=== PATIENT | female | born 1925 | race Caucasian/White ===

== ENCOUNTER → 2017-09-12 | Outpatient (CLI) | payer OTHER ==
[~2017-09-12] MED LIST: ACET500 PO; ALEN70 PO; ALLO100 PO; AMIT10 PO; AMIT50 PO; ASPI81CH PO; Amikacin S250 MG/11 IM; CALCAVITD PO; CEFU250T47 PO; CHOL10002 PO; CIPR500 PO; DIAZ5 PO; DOXA2 PO; ELIQUIS2.5 MG PO; ELMIRON PO; ESCI10 PO; ESTRTP PV; Elmiron100 MG PO; FAMO20 PO; FISH1000 PO; GLUC500 PO; HYDACE5 PO; HYDR1TAB94 PO; LEVOTHYROXINE100 MCG IM; LEVSOD100 PO; LEVSOD25; LEVSOD50 PO; LIDO5TP TOP; LOPE2C PO; LOVA20; METO25 PO; METO25ER PO; METO50 PO; MULVITMINF PO; Macrodantin100 MG PO; Macrodantin50 MG PO; Nitrofurantoin50 MG PO; OLME20 PO; OMEP20ER PO; ONDA4 PO; Omeprazole20 M1 PO; PHENA100 PO; PRED10; PRED5 PO; PROLIA60 MG/1 ML SC; Pyridium200 MG PO; RANI150 PO; SIMV10 PO; SPIR25; SPIR50 PO; Valium5 MG PO; Zocor PO; Zofran4 MG PO
== END | disposition home or self-care (01) ==
LOC: LAB SHORT 09:39 → PLD 09:39
DX: D48.5 Neoplasm of uncertain behavior of skin (principal)
CPT/HCPCS: 88305

== ENCOUNTER → 2017-09-29 | Outpatient (CLI) | payer OTHER ==
[~2017-09-29] MED LIST changes: -ASPI81CH PO; -CEFU250T47 PO; -ELIQUIS2.5 MG PO; -FAMO20 PO; -LEVSOD50 PO; -METO50 PO; -Macrodantin50 MG PO; -Nitrofurantoin50 MG PO; -OLME20 PO; -PRED5 PO; -PROLIA60 MG/1 ML SC
== END ==
LOC: LAB EV 10:49 → LAB SHORT 10:49
DX: N39.0 Urinary tract infection, site not specified (principal)
CPT/HCPCS: 87077; 87086; 87186

== ENCOUNTER → 2017-10-26 | Outpatient (CLI) | payer OTHER | END | disposition home or self-care (01) | LOC: LAB EV 12:40 → LAB SHORT 12:40 | DX: N39.0 Urinary tract infection, site not specified (principal) | CPT/HCPCS: 87077; 87086; 87186 ==